=== PATIENT | female | born 1955 | race Caucasian/White ===

== ENCOUNTER 2024-03-11 10:56 | Emergency (ER) | payer MEDICARE, OTHER ==
[~2024-03-11] VITALS: Ht 157.5 cm; Wt 72.5 kg
[2024-03-11 11:22] LABS: URINE BLOOD DIPSTICK Large (NEGATIVE); URINE GLUCOSE - DIPSTICK Negative (NEGATIVE); URINE KETONE Trace mg/dL (NEGATIVE); URINE NITRITE - DIPSTICK Negative (Negative); URINE PH 8.5 (4.5-8.0); URINE PROTEIN - DIPSTICK >=300 mg/dL (NEG-TRACE); URINE SPECIFIC GRAVITY 1.015; URINE UROBILINOGEN - DIPSTICK 0.2 E.U./dL (0.2)
[2024-03-11 11:27] LABS: URINE COLOR Red; URINE LEUK ESTERASE Small (NEGATIVE)
[2024-03-11 11:30] LABS: URINE RBC >100 RBC/hpf (0-5)
[2024-03-11 11:34] LABS: URINE WBC 20-50 WBC/hpf (0-5)
[2024-03-11 11:36] LABS: URINE BACTERIA FEW hpf; URINE SQUAMOUS EPITHELIAL CELL FEW EPI/hpf (0-FEW)
[2024-03-11] MEDS ORDERED: LIDOcaine HCl 1% (Local Anesth.) 20 ML VIAL IM STA (12:26)
[2024-03-11] MEDS ORDERED: KEFLEX500 MG PO (12:29)
[2024-03-11] MEDS ORDERED: cefTRIAXone SODIUM 1 GM/VIAL SDV IM ONE (12:30)
[2024-03-11 12:41] VITALS: BP 113/74
[2024-03-13] MEDS ORDERED: MACROBID100 M1 PO (10:29)
== END 2024-03-11 12:45 | disposition home or self-care (01) ==
LOC: ED 10:56
PROVIDERS: Family Medicine
DX: N39.0 Urinary tract infection, site not specified (principal); B96.20 Unspecified Escherichia coli [E. coli] as the cause of diseases classified elsewhere; Z87.440 Personal history of urinary (tract) infections